=== PATIENT | male | born 1935 | race Caucasian/White ===

== ENCOUNTER → 2018-02-28 | Outpatient (CLI) | payer OTHER ==
[~2018-02-28] MED LIST: AMOXICILLIN250 MG PO; BENADRYL25 M1 PO; HYDROCODONE-AP1 EACH PO; IOPAMIDOL 370 MG/ML 200 ML INFUS..BTL INJ ONE; METOPROLOL SUCC25 MG PO; MULTIPLE VITAMIN PO; NORCO 10-325 T1 EACH PO; PROBIOTIC PO; SODIUM CHLORIDE 0.9% 250ML 250 ML ONE; SODIUM CHLORIDE 0.9% 500ML 500 ML ONE; SODIUM CHLORIDE 0.9% 50ML 50 ML ONE; Z.0.GABAPENTIN100 MG PO; Z.0.METOPROLOL TART2 PO; Z.1.AMOXICILLIN500 M PO; [UNRECOGNIZED DRUG - REMARK]
[2018-02-28 12:25] LABS: CREATININE, SERUM 1.8 mg/dL (0.72-1.25)
--- NOTE | 2018-02-28 14:50 | Diagnostic Imaging Report ---
CT Pelvis with Intravenous Contrast INDICATION: Prostate cancer, gross hematuria, history of brain shunt TECHNIQUE: Thin collimation axial images obtained from the diaphragm to the level of the pubic symphysis following the uneventful administration of 100 cc of low osmolar, nonionic intravenous contrast. RADIATION DOSE: Total DLP: 416.1 mGy*cm Estimated effective dose: (DLP x 0.015 x size factor) mSv CTDIvol has been reviewed. It is below the limits set by the Radiation Protocol Committee (RPC). COMPARISON: None. PELVIS FINDINGS: Medical devices: A shunt tracks along the right paracolic gutter into the right lower quadrant. Suprapubic catheter enters the bladder via left paramedian approach without surrounding fluid collection. Kidneys: Right: Visualized portion of the lower pole demonstrates no evidence of mass. The parenchyma enhances normally. Lymph Nodes: No enlarged mesenteric lymph nodes. Right common iliac chain lymph node measures 6 mm. No enlarged lymph nodes along the pelvic sidewalls or in the inguinal regions.. Aorta: Normal in diameter with scattered calcifications. The common iliac arteries are ectatic but not aneurysmally dilated. Bowel: Small Bowel: Visualized portions are normal in diameter with normal wall thickness. Large Bowel: Diverticulosis coli, predominantly in the sigmoid colon, without associated inflammation. Visualized portions of the large bowel are not dilated. Bladder: Collapsed around the suprapubic catheter. The osborn are diffusely thickened. A diverticulum or part of the seminal vesicle to the right of the bladder measures 12 x 18 mm and 13 Hounsfield units consistent with fluid. No abnormal enhancement. Prostate: Diminutive with several calcifications. A discrete mass is not visible. There is poor tissue differentiation between the prostate gland and bladder base. Seminal vesicles: Poorly visualized. There is a small amount of fluid adjacent to small bowel loops above the bladder (image 36). No loculated fluid collection. Bones: Extensive sclerotic foci throughout the skeleton. No pathologic fractures. The visualized vertebral body heights are symmetric. IMPRESSION: 1. Diminutive prostate gland with circumferential mural thickening of the bladder. Prostate tumor, if present, is poorly visualized by CT. 2. Extensive osseous metastases. No pelvic lymphadenopathy. 3. Diverticulosis coli. Signed by: Dr. Bertha Valdovinos MD on 02/28/2018 2:47 PM
== END ==
LOC: CT 11:32
PROVIDERS: ATTEND Urology
DX: R31.0 Gross hematuria (principal); C61 Malignant neoplasm of prostate
CPT/HCPCS: 36415; 72193; 82565; 84520; J7040; J7050; Q9967